=== PATIENT | female | born 1970 | race Caucasian/White ===

== ENCOUNTER 2021-03-30 01:02 | Emergency (ER) | payer OTHER ==
[~2021-03-30 01:02] MED LIST: FLEXERIL10 MG PO; GABAPENTIN600 MG PO; VENTOLIN HFA IN18 GM INH; VICODIN 10/3251 EACH PO
[2021-03-30 01:40] LABS: BASOPHIL 0.3 % (0-2); EOSINOPHIL 3.4 % (0-5); HCT 36.4 % (37.0-47.0); HGB 11.9 g/dl (12.5-16.0); LYMPHOCYTE 47.6 % (15-48); MCH 29.4 pg (25.0-31.0); MCHC 32.7 g/dL (32.0-36.0); MCV 89.9 fL (78.0-100.0); MONOCYTE 6.1 % (0-12); MPV 12.3 fL (6.0-9.5); NEUTROPHIL 42.3 % (41-80); NRBC 0; PLT 211 K/uL (150-400); RBC 4.05 M/uL (4.20-5.40); RDW 14.9 % (11.5-14.0); WBC 7.9 K/uL (4.0-10.5)
[2021-03-30 01:51] LABS: BILIRUBIN NEGATIVE (NEGATIVE); BLOOD 1+ Ery/uL (NEGATIVE); CLARITY CLEAR (CLEAR); COLOR YELLOW (YELLOW); GLUCOSE (U) NORMAL (NORMAL); LEUKOCYTES 2+ Leu/uL (NEGATIVE); NITRITE NEGATIVE (NEGATIVE); PROTEIN NEGATIVE (NEGATIVE); SPECIFIC GRAVITY <=1.005 (1.001-1.030); UROBILINOGEN 0.2 mg/dL (0.2-1.0)
[2021-03-30 02:01] LABS: ALBUMIN 3.9 g/dL (3.4-5.0); BILIRUBIN - TOTAL 0.2 mg/dL (0.2-1.0); BUN/CREAT RATIO (CALC) 27.6 RATIO; CREATININE 0.58 mg/dL (0.51-0.95); GLOBULIN (CALCULATION) 3.5 g/dL; POTASSIUM 3.7 mmol/L (3.5-5.1); TOTAL PROTEIN 7.4 g/dL (6.4-8.2)
[2021-03-30 02:02] LABS: BACTERIA TRACE; URINARY WBC RARE
[2021-03-30] MEDS ORDERED: BACTRIM DS TAB1 EACH PO (02:45)
[2021-03-30] MEDS ORDERED: ZOFRAN4 M1 PO (02:45)
[2021-03-30] MEDS ORDERED: PYRIDIUM200 MG PO (02:45)
== END 2021-03-30 03:15 | disposition home or self-care (01) ==
LOC: FER 01:02
PROVIDERS: Emergency Medicine
DX: N30.90 Cystitis, unspecified without hematuria (principal); F17.210 Nicotine dependence, cigarettes, uncomplicated; Z98.890 Other specified postprocedural states; Z88.1 Allergy status to other antibiotic agents
CPT/HCPCS: 36415; 80053; 81001; 85025; J0696; J2060

== ENCOUNTER 2021-08-04 14:37 | Emergency (ER) | payer OTHER ==
[~2021-08-04 14:37] MED LIST changes: +BACTRIM DS TAB1 EACH PO; +PYRIDIUM200 MG PO; +ZOFRAN4 M1 PO
== END 2021-08-04 17:25 | disposition home or self-care (01) ==
LOC: FER 14:37
DX: M25.532 Pain in left wrist (principal)
CPT/HCPCS: 73030; 73110; J1885

== ENCOUNTER 2021-09-18 16:17 | Emergency (ER) | payer OTHER | END 2021-09-18 18:42 | disposition home or self-care (01) | LOC: FER 16:17 | DX: S00.03XA Contusion of scalp, initial encounter (principal); F17.200 Nicotine dependence, unspecified, uncomplicated; W22.09XA Striking against other stationary object, initial encounter; Y92.009 Unspecified place in unspecified non-institutional (private) residence as the place of occurrence of the external cause | CPT/HCPCS: 99283 ==

== ENCOUNTER 2022-03-14 12:23 | Emergency (ER) | payer OTHER ==
[2022-03-14 14:53] LABS: BASOPHIL 0.3 % (0-2); EOSINOPHIL 1.2 % (0-5); HCT 34.6 % (37.0-47.0); HGB 11.3 g/dl (12.5-16.0); LYMPHOCYTE 7.2 % (15-48); MCH 29.7 pg (25.0-31.0); MCHC 32.7 g/dL (32.0-36.0); MCV 91.1 fL (78.0-100.0); MONOCYTE 8.9 % (0-12); NEUTROPHIL 82.1 % (41-80); NRBC 0; PLT 152 K/uL (150-400); WBC 3.5 K/uL (4.0-10.5)
[2022-03-14 15:11] LABS: BUN/CREAT RATIO (CALC) 12.7 RATIO; CREATININE 0.55 mg/dL (0.51-0.95); POTASSIUM 3.7 mmol/L (3.5-5.1)
[2022-03-14 15:23] LABS: INFLUENZA A NAA NEGATIVE (NEGATIVE)
[2022-03-14 15:26] LABS: CORONAVIRUS 2019 SARS-COV-2 POSITIVE (NEGATIVE)
[2022-03-14 15:35] LABS: BILIRUBIN NEGATIVE (NEGATIVE); BLOOD 2+ Ery/uL (NEGATIVE); CLARITY CLEAR (CLEAR); COLOR YELLOW (YELLOW); GLUCOSE (U) NORMAL (NORMAL); LEUKOCYTES NEGATIVE Leu/uL (NEGATIVE); NITRITE NEGATIVE (NEGATIVE); PROTEIN NEGATIVE (NEGATIVE); SPECIFIC GRAVITY 1.015 (1.001-1.030); UROBILINOGEN 0.2 mg/dL (0.2-1.0)
[2022-03-14 15:44] LABS: URINARY WBC RARE
[2022-03-14] MEDS ORDERED: ACETAMINOPHEN500 M1 PO (16:10)
== END 2022-03-14 17:27 | disposition home or self-care (01) ==
LOC: FER 12:23
PROVIDERS: Emergency Medicine
DX: U07.1 COVID-19 (principal); F17.210 Nicotine dependence, cigarettes, uncomplicated; Z28.310 Unvaccinated for COVID-19; Z59.00 Homelessness unspecified
CPT/HCPCS: 36415; 71045; 80048; 81001; 85025; J0780; J1885; J7040; U0002